=== PATIENT | female | born 1975 | race Caucasian/White ===

== ENCOUNTER 2018-03-22 13:34 | Emergency (ER) | payer OTHER ==
[2018-03-22 13:39] VITALS: BP 140/76
[2018-03-22] MEDS ORDERED: OXYCODONE HCL IR 5 MG TABLET PO ONE (14:14)
[2018-03-22] MEDS: LIDOCAINE 1% INJ-PF (10 MG/ML) 30 ML SDV INJ ONE ×2 (14:20→14:41)
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
== END 2018-03-22 14:44 | disposition home or self-care (01) ==
LOC: ER 13:34
DX: L03.115 Cellulitis of right lower limb (principal); J45.909 Unspecified asthma, uncomplicated; I10 Essential (primary) hypertension
CPT/HCPCS: 99283; J3490